=== PATIENT | male | born 1975 | race African-American/Black ===

== ENCOUNTER 2016-12-04 12:15 | Emergency (ER) | payer MEDICAID ==
[~2016-12-04] VITALS: Ht 190.5 cm; Wt 136.1 kg
[~2016-12-04 12:15] MED LIST: Atorvastatin Calcium PO; ESOM40CA39 PO; INSLANTI SC; INSUINJ IJ; LIS5T PO
[2016-12-04 13:23] LABS: Basophils # (auto) 0 uL; Basophils % (auto) 0.4 % (0.0-2.0); CONDITION Y; Eosinophils # (auto) 0.1 uL; Eosinophils % (auto) 0.9 % (0.0-7.0); Hematocrit 48.3 % (41.0-53.0); Hemoglobin 16.3 g/dL (13.5-17.5); Mean Corpuscular Hemoglobin 29.3 pg (28.0-32.0); Mean Corpuscular Hgb Conc. 33.7 g/dL (32.0-36.0); Mean Corpuscular Volume 86.9 fL (80.0-100.0); Mean Platelet Volume 8.2 fL (7.4-10.4); Monocytes # (auto) 0.5 uL; Monocytes % (auto) 7.6 % (0.0-12.0); Neutrophils % (auto) 61.1 % (37.0-80.0); Platelet Count (auto) 255 10^3/uL (140-450); Red Cell Distribution Width 13.8 % (11.6-16.0); White Blood Cell 6.6 10^3/uL (4.4-10.8)
[2016-12-04 13:38] LABS: Albumin 3.2 g/dL (3.4-5.0); Calcium 8.5 mg/dL (8.5-10.1); Potassium 4.1 mmol/L (3.5-5.1)
[2016-12-04 13:40] LABS: BUN/Creatinine Ratio 8.7
[2016-12-04 13:42] LABS: Bilirubin, Total 0.6 mg/dL (0.2-1.0); Total Protein 7.8 g/dL (6.4-8.2)
[2016-12-04 15:47] LABS: INR 1.14 (0.9-1.15); Partial Thromboplastin Time 29.6 sec (22.64-33.71); Prothrombin Time 12.4 sec (9.37-12.3)
[2016-12-04] MEDS ORDERED: NovoloG Insulin 1unit/0.01ml Soln (100units/ml) SC ONE (16:00)
[2016-12-04 16:04] VITALS: BP 120/84
== END 2016-12-04 17:01 | disposition home or self-care (01) ==
LOC: ER 12:15
DX: I82.502 Chronic embolism and thrombosis of unspecified deep veins of left lower extremity (principal); E11.65 Type 2 diabetes mellitus with hyperglycemia; E44.1 Mild protein-calorie malnutrition; K21.9 Gastro-esophageal reflux disease without esophagitis; E78.5 Hyperlipidemia, unspecified; Z86.711 Personal history of pulmonary embolism; Z79.01 Long term (current) use of anticoagulants; Z79.4 Long term (current) use of insulin; Z88.8 Allergy status to other drugs, medicaments and biological substances
CPT/HCPCS: 36415; 80053; 82962; 85025; 85379; 85610; 85730; 93971; 96372; 99285; J1815

== ENCOUNTER 2018-04-16 13:45 | Emergency (ER) | payer MEDICAID ==
[~2018-04-16] VITALS: Ht 188 cm; Wt 127.0 kg
[2018-04-16 14:02] VITALS: BP 149/86
== END 2018-04-17 01:59 | disposition left against medical advice (07) ==
LOC: ER 13:48
DX: E11.621 Type 2 diabetes mellitus with foot ulcer (principal); Z53.21 Procedure and treatment not carried out due to patient leaving prior to being seen by health care provider